=== PATIENT | female | born 1995 | race Caucasian/White ===

== ENCOUNTER 2017-02-13 11:22 | Emergency (ER) | payer OTHER ==
[~2017-02-13] VITALS: Ht 160 cm; Wt 81.3 kg
[~2017-02-13 11:22] MED LIST: ABILIFY5 MG PO; AMBIEN CR6.25 MG PO; AMOXICILLIN500 M1 PO; BACTRIM,SEPT1 TABLET PO; BIRTH CONTROL; HYDROCODON-ACE1 EAC7 PO; IBUPROFEN800 MG PO; LITHIUM CARBON300 MG NG; LITHIUM CARBON300 MG PO; LORATADINE10 M2 PO; MACROBID100 MG PO; MEDROL DOSEPAK4 MG PO; MOBIC15 MG PO; MOTRIN600 MG PO; MOTRIN800 MG PO; MUCINEX DM ER1 EACH PO; NOHOMEMEDS; ORTHO TRI-CYCL1 EACH PO; PERCOCET 5/31 TABLET PO; PREDNISONE20 MG PO; PRENATAL TABLE1 EAC3 PO; PYRIDIUM100 MG PO; RANITIDINE HCL150 MG PO; SERTRALINE HCL25 MG PO; TESSALON PERLE100 MG PO; VYVANSE20 MG PO; XANAX; ZANTAC150 MG PO
[2017-02-13] MEDS ORDERED: TRAMADOL HCL50 MG PO (12:47)
[2017-02-13 13:46] LABS: ADD MIUA? YES; BILIRUBIN NEGATIVE; BLOOD NEGATIVE; COLOR YELLOW ((YELLOW)); GLUCOSE (STRIP) NEGATIVE; KETONES NEGATIVE; LEUKOCYTES NEGATIVE; NITRITE NEGATIVE; PROTEIN (STRIP) NEGATIVE; SPECIFIC GRAVITY 1.027 (1.000-1.030)
[2017-02-13 13:56] LABS: BACTERIA RARE /HPF; EPITHELIAL CELLS 1+ /HPF; MUCUS 4+ /LPF; RED BLOOD CELLS 0-5 /HPF (0-5); UCUL ADDED? NO; WHITE BLOOD CELLS 0-5 /HPF (0-5)
[2017-02-13] MEDS ORDERED: MEDROL DOSEPAK4 MG PO (14:08)
[2017-02-13] MEDS ORDERED: SKELAXIN800 MG PO (14:11)
[2017-02-13] MEDS ORDERED: MOBIC7.5 MG PO (14:11)
[2017-02-13 14:17] VITALS: BP 116/71
== END 2017-02-13 14:23 | disposition home or self-care (01) ==
LOC: EME 11:22
PROVIDERS: Physician Assistant
DX: M54.41 Lumbago with sciatica, right side (principal)
CPT/HCPCS: 81003; 84702; 99281; 99283; J1885

== ENCOUNTER 2017-03-01 05:10 | Emergency (ER) | payer OTHER ==
[~2017-03-01] VITALS: Ht 160 cm; Wt 82.5 kg
[~2017-03-01 05:10] MED LIST changes: +MOBIC7.5 MG PO; +SKELAXIN800 MG PO; +TRAMADOL HCL50 MG PO
[2017-03-01 06:41] VITALS: BP 114/74
== END 2017-03-01 06:42 | disposition home or self-care (01) ==
LOC: EME 05:10
DX: M54.31 Sciatica, right side (principal)
CPT/HCPCS: 73502; 99281; 99284; J1885

== ENCOUNTER 2017-10-08 20:23 | Emergency (ER) | payer OTHER ==
[~2017-10-08] VITALS: Ht 160 cm; Wt 80.2 kg
[2017-10-08 21:43] LABS: ADD MIUA? YES; BILIRUBIN NEGATIVE; BLOOD NEGATIVE; COLOR STRAW ((YELLOW)); GLUCOSE (STRIP) NEGATIVE; KETONES NEGATIVE; LEUKOCYTES TRACE; NITRITE NEGATIVE; PROTEIN (STRIP) NEGATIVE; SPECIFIC GRAVITY 1.015 (1.000-1.030)
[2017-10-08 21:56] LABS: BACTERIA RARE /HPF; EPITHELIAL CELLS RARE /HPF; MUCUS NONE SEEN /LPF; RED BLOOD CELLS 0-5 /HPF (0-5); UCUL ADDED? YES
[2017-10-08 22:18] LABS: INTERNAL CONTROL VALID? YES
[2017-10-08] MEDS ORDERED: MOTRIN800 MG PO (22:53)
[2017-10-08] MEDS ORDERED: SKELAXIN800 MG PO (22:53)
[2017-10-08] MEDS ORDERED: MEDROL DOSEPAK4 MG PO (22:53)
[2017-10-08 22:59] VITALS: BP 115/71
== END 2017-10-08 23:00 | disposition home or self-care (01) ==
LOC: RME 20:23 → EME 20:23 → RME 23:00
PROVIDERS: Physician Assistant
DX: M54.31 Sciatica, right side (principal); Z91.040 Latex allergy status
CPT/HCPCS: 72100; 81003; 84703; 87077; 87086; 87186; 99281; 99282

== ENCOUNTER 2017-10-14 17:42 | Emergency (ER) | payer OTHER ==
[~2017-10-14] VITALS: Ht 160 cm; Wt 80.3 kg
[2017-10-14 18:21] VITALS: BP 115/73
== END 2017-10-14 21:04 | disposition left against medical advice (07) ==
LOC: EME 17:42
DX: M54.9 Dorsalgia, unspecified (principal); M25.559 Pain in unspecified hip; R20.0 Anesthesia of skin; Z53.21 Procedure and treatment not carried out due to patient leaving prior to being seen by health care provider

== ENCOUNTER 2017-11-20 16:12 | Emergency (ER) | payer OTHER ==
[~2017-11-20] VITALS: Ht 160 cm; Wt 80.6 kg
[2017-11-20] MEDS ORDERED: VALACYCLOVIR1000 MG PO (19:22)
[2017-11-20] MEDS ORDERED: NAPROSYN500 MG PO (19:27)
[2017-11-20 19:48] VITALS: BP 121/81
== END 2017-11-20 19:48 | disposition home or self-care (01) ==
LOC: EME 16:12
DX: R07.89 Other chest pain (principal); M67.441 Ganglion, right hand; Z91.040 Latex allergy status
CPT/HCPCS: 71020; 73140; 99281; 99283

== ENCOUNTER 2018-01-28 01:54 | Emergency (ER) | payer OTHER ==
[~2018-01-28] VITALS: Ht 160 cm; Wt 79.9 kg
[~2018-01-28 01:54] MED LIST changes: +NAPROSYN500 MG PO; +VALACYCLOVIR1000 MG PO
[2018-01-28 04:00] VITALS: BP 122/68
== END 2018-01-28 04:32 | disposition left against medical advice (07) ==
LOC: EME 01:54
DX: T78.40XA Allergy, unspecified, initial encounter (principal); F32.9 Major depressive disorder, single episode, unspecified; Z91.040 Latex allergy status; Z91.030 Bee allergy status
CPT/HCPCS: 99281; 99284; J7512